=== PATIENT | male | born 1960 | race Two or more races ===

== ENCOUNTER 2016-08-30 19:37 | Emergency (ER) | payer MEDICAID, OTHER ==
[~2016-08-30] VITALS: Ht 182.9 cm; Wt 131.5 kg
[2016-08-30] MEDS ORDERED: ASPirin 81 mg TAB PO ONE (20:00)
[2016-08-30 20:08] LABS: Basophils # (auto) 0 uL; Basophils % (auto) 0.5 % (0.0-2.0); Eosinophils # (auto) 0.3 uL; Hematocrit 43.9 % (41.0-53.0); Hemoglobin 14.1 g/dL (13.5-17.5); Lymphocytes # (auto) 2.4 uL; Lymphocytes % (auto) 29.6 % (10.0-50.0); Mean Corpuscular Hemoglobin 28.1 pg (28.0-32.0); Mean Corpuscular Hgb Conc. 32.1 g/dL (32.0-36.0); Mean Corpuscular Volume 87.5 fL (80.0-100.0); Monocytes # (auto) 0.7 uL; Neutrophils # (auto) 4.6 uL; Neutrophils % (auto) 56.9 % (37.0-80.0); Platelet Count (auto) 365 10^3/uL (140-450); White Blood Cell 8.1 10^3/uL (4.4-10.8)
[2016-08-30 20:23] LABS: INR 0.99 (0.9-1.15); Partial Thromboplastin Time 25.2 sec (22.64-33.71); Prothrombin Time 10.2 sec (9.37-12.3)
[2016-08-30 20:34] LABS: Albumin 3.7 g/dL (3.4-5.0); BUN/Creatinine Ratio 10.9; Calcium 8.5 mg/dL (8.5-10.1); Magnesium 2.4 mg/dL (1.6-2.6); Potassium 3.7 mmol/L (3.5-5.1)
[2016-08-30 20:37] LABS: Bilirubin, Total 0.4 mg/dL (0.2-1.0); Total Protein 7.2 g/dL (6.4-8.2)
[2016-08-30 20:38] LABS: B-Type Natriuretic Peptide 13.77 pg/mL (0-100)
[2016-08-30 20:39] LABS: Temperature: 22.7 C (20.0-25.0)
[2016-08-30 21:48] LABS: Urine Bilirubin Negative (Negative); Urine Blood Negative /uL (Negative); Urine Color Yellow (Yellow); Urine Glucose TRACE mg/dL (Normal); Urine Ketone Negative (Negative); Urine Mucus FEW (None Seen); Urine Nitrite Negative (Negative); Urine RBC <1 /hpf (0 - 3); Urine Squamous Epithelial Cell FEW /hpf (<5); Urine Urobilinogen Normal (Negative); Urine pH 5.5 (5.0-8.0)
[2016-08-30 22:03] VITALS: BP 136/88
[2016-08-31] MEDS ORDERED: ALBUTEROL SULF 2.5 MG/0.5ML(0.5%) NEB SOLN NEB ONE
[2016-08-31] MEDS ORDERED: ACETAMINOPHEN 325 MG TAB PO ONE
[2016-08-31] MEDS ORDERED: IPRATROPIUM BROM 0.5 MG/2.5ML INH SOL NEB ONE
[2016-08-31] MEDS ORDERED: cefTRIAXone SOD 1,000 MG VL IM ONE (00:45)
== END 2016-08-31 01:01 | disposition home or self-care (01) ==
LOC: ER 19:40
DX: J06.9 Acute upper respiratory infection, unspecified (principal); J98.11 Atelectasis
CPT/HCPCS: 36415; 71020; 80053; 81001; 83735; 83880; 84484; 85025; 85379; 85610; 85730; 93005; 94640; 96372; 99285; J0696

== ENCOUNTER 2017-04-10 00:24 | Emergency (ER) | payer MEDICAID ==
[~2017-04-10] VITALS: Ht 182.9 cm; Wt 131.5 kg
[2017-04-10 01:26] LABS: Basophils # (auto) 0.1 uL; Basophils % (auto) 0.7 % (0.0-2.0); Eosinophils # (auto) 0.2 uL; Eosinophils % (auto) 2.8 % (0.0-7.0); Hematocrit 42.5 % (41.0-53.0); Hemoglobin 14.8 g/dL (13.5-17.5); Lymphocytes # (auto) 2.1 uL; Lymphocytes % (auto) 23.4 % (10.0-50.0); Mean Corpuscular Hgb Conc. 34.7 g/dL (32.0-36.0); Mean Corpuscular Volume 86.3 fL (80.0-100.0); Mean Platelet Volume 7.8 fL (6.9-10.8); Monocytes # (auto) 0.5 uL; Neutrophils # (auto) 5.9 uL; Neutrophils % (auto) 67.1 % (37.0-80.0); Nucleated Red Blood Cells % 0.2 %; Platelet Count (auto) 305 10^3/uL (140-450); Red Cell Distribution Width 12.9 % (11.8-14.3); White Blood Cell 8.8 10^3/uL (4.4-10.8)
[2017-04-10] MEDS ORDERED: ALBUTEROL SULF 2.5 MG/0.5ML(0.5%) NEB SOLN NEB ONE (01:30)
[2017-04-10] MEDS ORDERED: IPRATROPIUM BROM 0.5 MG/2.5ML INH SOL NEB ONE (01:30)
[2017-04-10 01:46] LABS: Albumin 3.7 g/dL (3.4-5.0); Anion Gap 10 (5-15); Aspartate Aminotransferase 16 U/L (15-37); Blood Urea Nitrogen 15 mg/dL (7-18); Calcium 8.9 mg/dL (8.5-10.1); Carbon Dioxide 25 mmol/L (21-32); Chloride 106 mmol/L (98-107); GFR African American 100 mL/min; GFR Non-African American 82 mL/min; Glucose 262 mg/dL (74-106); Potassium 3.7 mmol/L (3.5-5.1); Sodium 141 mmol/L (136-145)
[2017-04-10 01:56] LABS: Alkaline Phosphatase 81 U/L (45-117); Bilirubin, Total 0.3 mg/dL (0.2-1.0); Total Protein 7.1 g/dL (6.4-8.2)
[2017-04-10 05:07] VITALS: BP 138/76
== END 2017-04-10 05:08 | disposition home or self-care (01) ==
LOC: ER 00:27
DX: J20.9 Acute bronchitis, unspecified (principal); R04.2 Hemoptysis; E11.65 Type 2 diabetes mellitus with hyperglycemia
CPT/HCPCS: 36415; 71020; 80053; 84484; 85025; 85379; 93005; 94640

== ENCOUNTER 2021-11-17 09:41 | Inpatient (IN) | payer MEDICAID ==
[~2021-11-17] VITALS: Ht 182.9 cm; Wt 132.0 kg
[2021-11-17 10:45] LABS: Basophils # (auto) 0 10 ^3/uL (0-0.2); Basophils % (auto) 0.7 % (0.0-2.0); Eosinophils # (auto) 0.2 10 ^3/uL (0-0.8); Eosinophils % (auto) 2.5 % (0.0-7.0); Hematocrit 41.9 % (41.0-53.0); Hemoglobin 14.2 g/dL (13.5-17.5); Lymphocytes # (auto) 1.8 10 ^3/uL (0.4-5.4); Lymphocytes % (auto) 26.1 % (10.0-50.0); Mean Corpuscular Hemoglobin 29.4 pg (28.0-32.0); Mean Corpuscular Hgb Conc. 33.9 g/dL (32.0-36.0); Mean Corpuscular Volume 86.9 fL (80.0-100.0); Monocytes # (auto) 0.5 10 ^3/uL (0-1.3); Monocytes % (auto) 6.7 % (0.0-12.0); Neutrophils # (auto) 4.4 10 ^3/uL (1.6-8.6); Nucleated Red Blood Cells % 0.1 %; Red Blood Cells 4.83 10^6/uL (4.5-5.90); Red Cell Distribution Width 13.2 % (11.8-14.3); White Blood Cell 6.9 10^3/uL (4.4-10.8)
[2021-11-17 11:20] LABS: Albumin 3.7 g/dL (3.4-5.0); BUN/Creatinine Ratio 12.1; Calcium 9.5 mg/dL (8.5-10.1)
[2021-11-17 11:22] LABS: Bilirubin, Total 0.4 mg/dL (0.2-1.0); Total Protein 7.1 g/dL (6.4-8.2)
[2021-11-17 12:58] LABS: Urine Bacteria NONE SEEN /hpf (None Seen); Urine Blood Negative /uL (Negative); Urine Specific Gravity 1.019 (1.001-1.035); Urine WBC 3 /hpf (0 - 3)
[2021-11-17] MEDS ORDERED: LORazepam 2MG/ML-1ML VIAL IV PRN (20:00)
[2021-11-17] MEDS ORDERED: HYDROcodone-ACET 5/325MG TAB PO PRN (21:00)
[2021-11-17] MEDS ORDERED: ACETAMINOPHEN 325 MG TAB PO PRN (21:00)
[2021-11-17] MEDS ORDERED: DEXTROSE (50%) 50ML SYRG IV PRN (21:00)
[2021-11-17] MEDS ORDERED: MORPHINE SULFATE INJECTION 2 MG/ML SYRG IV PRN (21:00)
[2021-11-17] MEDS ORDERED: ONDANSETRON HCL 4 MG/2 ML VIAL IV PRN (21:00)
[2021-11-17] MEDS ORDERED: hydrALAZINE HCL 10 MG TAB PO PRN (21:00)
[2021-11-17] MEDS: ACCU-CHEK COMFORT CURVE STRIP VI SCH (21:55)
[2021-11-17] MEDS: InsuLIN REG 1unit/0.01ml Soln (100units/ml) SC SCH (21:56)
[2021-11-17 23:31] VITALS: BP 141/89
[2021-11-17] MEDS: FAMOTIDINE 20 MG TAB PO SCH (23:31)
[2021-11-18] MEDS ORDERED: OMEG100078 PO (04:23)
[2021-11-18] MEDS ORDERED: FENO160T8 PO (04:23)
[2021-11-18] MEDS ORDERED: ZINC100T5 PO (04:23)
[2021-11-18] MEDS ORDERED: LOSA-69 PO (04:23)
[2021-11-18] MEDS ORDERED: SEMA4INJ SC (04:23)
[2021-11-18] MEDS ORDERED: METF-489 PO (04:23)
[2021-11-18] MEDS ORDERED: SIMV-8 PO (04:23)
[2021-11-18] MEDS ORDERED: PIOG15TA25 PO (04:23)
[2021-11-18] MEDS ORDERED: DICY20TA PO (04:23)
[2021-11-18] MEDS ORDERED: LANS30CA57 PO (04:23)
[2021-11-18 04:56] VITALS: BP 127/77
[2021-11-18 06:15] LABS: Basophils # (auto) 0 10 ^3/uL (0-0.2); Basophils % (auto) 0.4 % (0.0-2.0); Eosinophils # (auto) 0.3 10 ^3/uL (0-0.8); Eosinophils % (auto) 4.1 % (0.0-7.0); Hematocrit 38.4 % (41.0-53.0); Hemoglobin 13.4 g/dL (13.5-17.5); Lymphocytes % (auto) 29.4 % (10.0-50.0); Mean Corpuscular Hgb Conc. 34.8 g/dL (32.0-36.0); Mean Corpuscular Volume 86.3 fL (80.0-100.0); Monocytes # (auto) 0.6 10 ^3/uL (0-1.3); Monocytes % (auto) 8.6 % (0.0-12.0); Neutrophils # (auto) 3.8 10 ^3/uL (1.6-8.6); Neutrophils % (auto) 57.5 % (37.0-80.0); Nucleated Red Blood Cells % 0.1 %; Red Blood Cells 4.45 10^6/uL (4.5-5.90); Red Cell Distribution Width 13.2 % (11.8-14.3); White Blood Cell 6.6 10^3/uL (4.4-10.8)
[2021-11-18 06:29] LABS: Albumin 3.3 g/dL (3.4-5.0); Calcium 8.4 mg/dL (8.5-10.1); Potassium 3.7 mmol/L (3.5-5.1)
[2021-11-18 06:32] LABS: BUN/Creatinine Ratio 13.3; Bilirubin, Total 0.3 mg/dL (0.2-1.0); Total Protein 6.3 g/dL (6.4-8.2)
[2021-11-18] MEDS: ACCU-CHEK COMFORT CURVE STRIP VI SCH ×3 (06:40→17:11)
[2021-11-18] MEDS: InsuLIN REG 1unit/0.01ml Soln (100units/ml) SC SCH ×3 (06:45→17:11)
[2021-11-18 09:00] VITALS: BP 132/77
[2021-11-18] MEDS: FAMOTIDINE 20 MG TAB PO SCH (09:31)
[2021-11-18] MEDS ORDERED: SIMV-13 PO (10:26)
[2021-11-18] MEDS ORDERED: GLIP5TAB12 PO (10:26)
[2021-11-18] MEDS ORDERED: LORA-622 PO (10:26)
[2021-11-18] MEDS ORDERED: TOPI50TA32 PO (10:26)
[2021-11-18] MEDS ORDERED: MECLIZINE HCL 25 MG TAB PO PRN (12:30)
[2021-11-18] MEDS ORDERED: SODIUM CHLORIDE 0.9% 1,000 ML IV ONE (12:30)
[2021-11-18 14:49] VITALS: BP 153/108
[2021-11-18 16:35] VITALS: BP 127/84
[2021-11-18] MEDS ORDERED: MECL25CH38 PO (18:16)
[2021-11-18 20:22] VITALS: BP 126/84
== END 2021-11-18 21:25 | disposition home health service (06) | DRG 111 ==
LOC: ER 09:41 → TELE 20:31 → TELE-EAST 23:00
PROVIDERS: ADMIT Nurse Practitioner Family; ATTEND Nurse Practitioner Family
DX: H81.10 Benign paroxysmal vertigo, unspecified ear (principal); E11.65 Type 2 diabetes mellitus with hyperglycemia; H57.02 Anisocoria; I44.5 Left posterior fascicular block; Z20.822 Contact with and (suspected) exposure to COVID-19; I10 Essential (primary) hypertension; G93.0 Cerebral cysts; E78.5 Hyperlipidemia, unspecified; E66.9 Obesity, unspecified; Z68.39 Body mass index [BMI] 39.0-39.9, adult
CPT/HCPCS: 36415; 70450; 70551; 71045; 71250; 80053; 81001; 82962; 83735; 83880; 84484; 85025; 93005; 93306; 93971; G0378; J1815

== ENCOUNTER 2022-03-23 06:08 | Inpatient (IN) | payer MEDICAID ==
[~2022-03-23] VITALS: Ht 182.9 cm; Wt 124.9 kg
[~2022-03-23 06:08] MED LIST: DICY20TA PO; FENO160T8 PO; GLIP5TAB12 PO; LANS30CA57 PO; LORA-622 PO; LOSA-69 PO; MECL25CH38 PO; METF-489 PO; OMEG100078 PO; PIOG15TA25 PO; SEMA4INJ SC; SIMV-13 PO; TOPI50TA32 PO; ZINC100T5 PO
[2022-03-23] MEDS ORDERED: ONDANSETRON HCL 4 MG/2 ML VIAL IV ONE (07:15)
[2022-03-23] MEDS ORDERED: LACTATED RINGER'S 1,000 ML IV ONE (07:15)
[2022-03-23] MEDS ORDERED: KETOROLAC TROMETH 30 MG/ML 1ML VIAL IV ONE (07:15)
[2022-03-23 07:26] LABS: Basophils # (auto) 0.1 10 ^3/uL (0-0.2); Basophils % (auto) 0.7 % (0.0-2.0); Eosinophils # (auto) 0.2 10 ^3/uL (0-0.8); Eosinophils % (auto) 2.3 % (0.0-7.0); Hematocrit 39.3 % (41.0-53.0); Lymphocytes # (auto) 1.5 10 ^3/uL (0.4-5.4); Mean Corpuscular Hemoglobin 28.7 pg (28.0-32.0); Mean Corpuscular Hgb Conc. 32.9 g/dL (32.0-36.0); Mean Corpuscular Volume 87.3 fL (80.0-100.0); Monocytes # (auto) 0.8 10 ^3/uL (0-1.3); Monocytes % (auto) 9.8 % (0.0-12.0); Neutrophils # (auto) 5.4 10 ^3/uL (1.6-8.6); Neutrophils % (auto) 68.2 % (37.0-80.0); Red Blood Cells 4.51 10^6/uL (4.5-5.90); Red Cell Distribution Width 12.6 % (11.8-14.3)
[2022-03-23 07:52] LABS: Albumin 3.5 g/dL (3.4-5.0); Calcium 8.7 mg/dL (8.5-10.1); Potassium 3.9 mmol/L (3.5-5.1)
[2022-03-23 07:55] LABS: BUN/Creatinine Ratio 8.5; Bilirubin, Total 0.5 mg/dL (0.2-1.0); Total Protein 7.2 g/dL (6.4-8.2)
[2022-03-23 09:03] LABS: Urine Bacteria NONE SEEN /hpf (None Seen); Urine Blood 1+ /uL (Negative); Urine Specific Gravity 1.004 (1.001-1.035); Urine WBC 2 /hpf (0 - 3)
[2022-03-23 09:14] LABS: Alcohol, Urine < 3.0 mg/dL (0-10); Amphetamine Screen, Urine NEGATIVE (NEGATIVE); Barbiturate Scree,Urine NEGATIVE (NEGATIVE); Benzodiazephine Screen, Urine NEGATIVE (NEGATIVE); Cannabinoid Screen, Urine NEGATIVE (NEGATIVE); Cocaine Screen, Urine NEGATIVE (NEGATIVE); Opiate Scree,Urine NEGATIVE (NEGATIVE); Phencyclidine Screen, Urine NEGATIVE (NEGATIVE)
[2022-03-23] MEDS ORDERED: cefTRIAXone 1GM/50ML D5W 50 ML IV ONE (10:00)
[2022-03-23] MEDS ORDERED: DEXTROSE (50%) 50ML SYRG IV PRN (10:30)
[2022-03-23] MEDS ORDERED: SODIUM CHLORIDE 0.9% 1,000 ML IV ONE (10:30)
[2022-03-23] MEDS ORDERED: hydrALAZINE HCL 20 MG/ML VL IV PRN (10:45)
[2022-03-23 11:05] LABS: INR 0.97 (0.9-1.15)
[2022-03-23] MEDS: InsuLIN REG 1unit/0.01ml Soln (100units/ml) SC SCH ×3 (11:30→21:46)
[2022-03-23] MEDS: ACCU-CHEK COMFORT CURVE STRIP VI SCH ×3 (11:30→21:46)
[2022-03-23] MEDS: ONDANSETRON HCL 4 MG/2 ML VIAL IV PRN (21:46)
[2022-03-23 22:00] VITALS: BP 107/65
[2022-03-24 05:00] VITALS: BP 120/86
[2022-03-24] MEDS: HYDROmorphone HCL 2 MG/ML VL/or syr IV PRN ×2 (05:41→20:23)
[2022-03-24] MEDS: ACCU-CHEK COMFORT CURVE STRIP VI SCH ×4 (06:17→21:43)
[2022-03-24] MEDS: InsuLIN REG 1unit/0.01ml Soln (100units/ml) SC SCH ×4 (06:17→21:44)
[2022-03-24 06:21] LABS: Basophils # (auto) 0 10 ^3/uL (0-0.2); Basophils % (auto) 0.8 % (0.0-2.0); Eosinophils # (auto) 0.2 10 ^3/uL (0-0.8); Eosinophils % (auto) 3.7 % (0.0-7.0); Hematocrit 35.5 % (41.0-53.0); Hemoglobin 11.8 g/dL (13.5-17.5); Lymphocytes # (auto) 1.5 10 ^3/uL (0.4-5.4); Lymphocytes % (auto) 24.1 % (10.0-50.0); Mean Corpuscular Hemoglobin 28.6 pg (28.0-32.0); Mean Corpuscular Hgb Conc. 33.3 g/dL (32.0-36.0); Monocytes # (auto) 0.5 10 ^3/uL (0-1.3); Monocytes % (auto) 8.3 % (0.0-12.0); Neutrophils # (auto) 3.9 10 ^3/uL (1.6-8.6); Neutrophils % (auto) 63.1 % (37.0-80.0); Nucleated Red Blood Cells % 0.1 %; Red Blood Cells 4.13 10^6/uL (4.5-5.90); Red Cell Distribution Width 12.3 % (11.8-14.3); White Blood Cell 6.1 10^3/uL (4.4-10.8)
[2022-03-24 06:23] LABS: Albumin 3.2 g/dL (3.4-5.0); Calcium 8.6 mg/dL (8.5-10.1); Potassium 4.4 mmol/L (3.5-5.1)
[2022-03-24 06:25] LABS: BUN/Creatinine Ratio 8.9
[2022-03-24 06:28] LABS: Bilirubin, Total 0.4 mg/dL (0.2-1.0)
[2022-03-24] MEDS: cefTRIAXone 1GM/50ML D5W 50 ML IV SCH (08:31)
[2022-03-24 09:00] VITALS: BP 120/75
[2022-03-24] MEDS: ONDANSETRON HCL 4 MG/2 ML VIAL IV PRN (10:16)
[2022-03-24] MEDS ORDERED: MANNITOL FTV 25% 12.5 GM/50 ML 50 ML IV ONE (11:15)
[2022-03-24] MEDS ORDERED: HYDROcodone-ACET 5/325MG TAB PO PRN (12:00)
[2022-03-24 13:00] VITALS: BP 138/87
[2022-03-24] MEDS: SODIUM CHLORIDE 0.9% 1,000 ML IV SCH (13:43)
[2022-03-24 17:00] VITALS: BP 125/65
[2022-03-24 20:00] VITALS: BP 127/71
[2022-03-24 22:00] VITALS: BP 127/71
[2022-03-25] MEDS: SODIUM CHLORIDE 0.9% 1,000 ML IV SCH ×2 (02:20→14:40)
[2022-03-25 05:00] VITALS: BP 121/77
[2022-03-25 06:19] LABS: BUN/Creatinine Ratio 14.3; Calcium 8.5 mg/dL (8.5-10.1); Potassium 4.6 mmol/L (3.5-5.1)
[2022-03-25] MEDS: ACCU-CHEK COMFORT CURVE STRIP VI SCH ×4 (06:30→21:26)
[2022-03-25] MEDS: HYDROmorphone HCL 2 MG/ML VL/or syr IV PRN (06:31)
[2022-03-25] MEDS: InsuLIN REG 1unit/0.01ml Soln (100units/ml) SC SCH ×4 (06:31→21:27)
[2022-03-25 09:00] VITALS: BP 138/80
[2022-03-25] MEDS: cefTRIAXone 1GM/50ML D5W 50 ML IV SCH (10:09)
[2022-03-25] MEDS ORDERED: HYDROmorphone HCL 2 MG/ML VL/or syr IV PRN ×2 (11:00→13:45)
[2022-03-25] MEDS: ONDANSETRON HCL 4 MG/2 ML VIAL IV PRN ×2 (12:44→17:27)
[2022-03-25 13:00] VITALS: BP 130/78
[2022-03-25] MEDS ORDERED: HYDROcodone-ACET 5/325MG TAB PO PRN (13:45)
[2022-03-25 17:00] VITALS: BP 138/82
[2022-03-25 20:00] VITALS: BP 123/76
[2022-03-25 22:00] VITALS: BP 123/76
[2022-03-26 05:00] VITALS: BP 124/84
[2022-03-26] MEDS: SODIUM CHLORIDE 0.9% 1,000 ML IV SCH (05:03)
[2022-03-26] MEDS: ACCU-CHEK COMFORT CURVE STRIP VI SCH ×2 (06:44→12:18)
[2022-03-26] MEDS: InsuLIN REG 1unit/0.01ml Soln (100units/ml) SC SCH ×2 (06:44→12:26)
[2022-03-26 06:57] LABS: INR 0.99 (0.9-1.15); Partial Thromboplastin Time 26.3 sec (24.6-33.4)
[2022-03-26 07:02] LABS: Calcium 8.4 mg/dL (8.5-10.1); Potassium 4.3 mmol/L (3.5-5.1)
[2022-03-26 07:08] LABS: Basophils # (auto) 0 10 ^3/uL (0-0.2); Basophils % (auto) 0.5 % (0.0-2.0); Eosinophils # (auto) 0.1 10 ^3/uL (0-0.8); Eosinophils % (auto) 2.4 % (0.0-7.0); Hematocrit 38.6 % (41.0-53.0); Hemoglobin 12.8 g/dL (13.5-17.5); Lymphocytes # (auto) 1.1 10 ^3/uL (0.4-5.4); Lymphocytes % (auto) 18.8 % (10.0-50.0); Mean Corpuscular Hgb Conc. 33.3 g/dL (32.0-36.0); Monocytes # (auto) 0.4 10 ^3/uL (0-1.3); Monocytes % (auto) 7.8 % (0.0-12.0); Neutrophils % (auto) 70.5 % (37.0-80.0); Nucleated Red Blood Cells % 0.1 %; Red Blood Cells 4.43 10^6/uL (4.5-5.90); Red Cell Distribution Width 12.3 % (11.8-14.3); White Blood Cell 5.6 10^3/uL (4.4-10.8)
[2022-03-26 07:09] LABS: Albumin 3.3 g/dL (3.4-5.0); Bilirubin, Total 0.4 mg/dL (0.2-1.0); Total Protein 6.4 g/dL (6.4-8.2)
[2022-03-26] MEDS ORDERED: ceFAZolin 1GM/50ML 100 ML IV ONE (07:14)
[2022-03-26] MEDS ORDERED: fentaNYL CITRATE 100 MCG/2 ML VL ONE (07:34)
[2022-03-26] MEDS ORDERED: MIDAZOLAM HCL 2MG/2ML 2ml VIAL (1mg/ml) ONE (07:35)
[2022-03-26] MEDS ORDERED: LIDOCAINE 2% (LOCAL ANESTH.) PF 5ml SDV ONE (07:37)
[2022-03-26] MEDS ORDERED: ONDANSETRON HCL 4 MG/2 ML VIAL ONE (07:37)
[2022-03-26] MEDS ORDERED: PROPOFOL 10 MG/ML 20 ML IV ONE ×2 (07:38→09:32)
[2022-03-26 08:25] VITALS: BP 138/83
[2022-03-26] MEDS ORDERED: HYDROmorphone HCL 2 MG/ML VL/or syr IV PRN (08:45)
[2022-03-26] MEDS ORDERED: ONDANSETRON HCL 4 MG/2 ML VIAL IV PRN (08:45)
[2022-03-26] MEDS: cefTRIAXone 1GM/50ML D5W 50 ML IV SCH (09:00)
[2022-03-26] MEDS ORDERED: ONDA-144 PO (12:05)
[2022-03-26 12:35] VITALS: BP 127/77
== END 2022-03-26 15:45 | disposition home or self-care (01) | DRG 443 ==
LOC: ER 06:25 → OVERFLOW 10:27 → EAST 21:20
PROVIDERS: ADMIT Registered Nurse; ATTEND Internal Medicine
PROC: 0TC78ZZ Extirpation of Matter from Left Ureter, Via Natural or Artificial Opening Endoscopic (ICD-10-PCS; 2022-03-26)
PROC: 0TC18ZZ Extirpation of Matter from Left Kidney, Via Natural or Artificial Opening Endoscopic (ICD-10-PCS; principal; 2022-03-26 07:39)
DX: N13.2 Hydronephrosis with renal and ureteral calculous obstruction (principal); N17.0 Acute kidney failure with tubular necrosis; E66.9 Obesity, unspecified; E11.65 Type 2 diabetes mellitus with hyperglycemia; E78.5 Hyperlipidemia, unspecified; Z20.822 Contact with and (suspected) exposure to COVID-19; I10 Essential (primary) hypertension; Z68.37 Body mass index [BMI] 37.0-37.9, adult; Z79.84 Long term (current) use of oral hypoglycemic drugs; Z79.899 Other long term (current) drug therapy; Z80.0 Family history of malignant neoplasm of digestive organs; Z90.49 Acquired absence of other specified parts of digestive tract
CPT/HCPCS: 36415; 71045; 74176; 76775; 80048; 80053; 80307; 81001; 82962; 83690; 84484; 85025; 85610; 85730; 86850; 86900; 86901; 93005; 96361; 96365; 96375; G0378; J0690; J0696; J1815; J1885; J2001; J2250; J2405; J2704

== ENCOUNTER → 2022-04-20 | Outpatient (CLI) | payer MEDICAID ==
[~2022-04-20] MED LIST changes: +ONDA-144 PO
== END | disposition home or self-care (01) ==
LOC: LAB 15:00
PROVIDERS: ATTEND Urology
DX: N20.0 Calculus of kidney (principal)

== ENCOUNTER → 2025-03-13 | Day surgery (SDC) | payer MEDICAID ==
[2025-03-12 12:59] LABS: Hematocrit 38.8 % (41.0-53.0); Hemoglobin 13.3 g/dL (13.5-17.5); Mean Corpuscular Hemoglobin 30.3 pg (28.0-32.0); Mean Corpuscular Volume 87.9 fL (80.0-100.0); Nucleated Red Blood Cells % 0.0 %
[2025-03-12 13:01] LABS: Urine Protein, UAD Negative (Negative)
[2025-03-12 13:17] LABS: INR 0.97 (0.9-1.15); Partial Thromboplastin Time 25.0 SEC (24.5-34.5); Prothrombin Time 10.3 sec (9.3-11.8)
[2025-03-12 14:57] LABS: Alanine Aminotransferase 19 U/L (7-40); Albumin 4.6 g/dL (3.2-4.8); Alkaline Phosphatase 55 U/L (46-116); Anion Gap 10 (5-15); BUN/Creatinine Ratio 9.4 (10.0-20.0); Blood Urea Nitrogen 11 mg/dL (9-23); Calcium 9.5 mg/dL (8.7-10.4); Carbon Dioxide 25 mmol/L (20-31); Potassium 3.6 mmol/L (3.5-5.1); Sodium 143 mmol/L (136-145); Total Protein 6.5 g/dL (5.7-8.2)
[2025-03-12 14:58] LABS: Bilirubin, Total 0.4 mg/dL (0.2-1.0)
[2025-03-12 15:04] LABS: Chloride 108 mmol/L (98-107); Glucose 150 mg/dL (74-106)
[~2025-03-13] VITALS: Ht 182.9 cm; Wt 121.6 kg
[~2025-03-13] MED LIST changes: +ALBUTEROL SULFATE 90 MCG MDI IN ONE; +ATOR40TA52 PO; +FENO160T PO; -FENO160T8 PO; -GLIP5TAB12 PO; +GLIP5TAB21 PO; +GLYCOPYRROLATE 0.2 MG/ML 1ML VIAL ONE; +HYDROmorphone HCL 2 MG/ML VL/or syr IV PRN; +IBUP-1456 PO; +KETOROLAC TROMETH 30 MG/ML 1ML VIAL ONE; +LIDOCAINE 2% (LOCAL ANESTH.) PF 5ml SDV ONE; -LORA-622 PO; +LOSA-534 PO; -LOSA-69 PO; -MECL25CH38 PO; +METOCLOPRAMIDE HCL 5MG/ml INJ 2ml VIAL ONE; +MIDAZOLAM HCL 2MG/2ML 2ml VIAL (1mg/ml) ONE; -OMEG100078 PO; -ONDA-144 PO; +ONDANSETRON HCL 4 MG/2 ML VIAL ONE; +PREG75CA PO; +PROPOFOL 10 MG/ML 20 ML IV ONE; -SEMA4INJ SC; -SIMV-13 PO; +TIRZ2.5I SC; +TOPI1CAP23 OR; -TOPI50TA32 PO; +diphenhdrAMINE HCL 50 MG/1 ML VL ONE; +fentaNYL CITRATE 100 MCG/2 ML VL ONE; +hydrALAZINE HCL 20 MG/ML VL IV PRN
[2025-03-13] MEDS: CIPROFLOXACIN 400MG/200ML 200 ML IV ONE (14:45)
[2025-03-13] MEDS: IOHEXOL 300 MG/ML 100ML BOTTLE IJ ONE (14:50)
--- NOTE | 2025-03-13 15:18 | DVHNC2 ---
Procedure - OPERATIVE REPORT Pre-op. Diagnosis: Renal Stone Post-op. Diagnosis: Same as pre-op diagnosis Operation: Extracorporeal Shockwave Lithotripsy Anesthesia: General Indications: Patient was found to have symptomatic Urolithiasis. Patient is here to undergo ESWL therapy. Informed Consent: The procedure was explained to the patient. It's risks include but not limited to infection, bleeding, and damage to the kidney. Patient fully understood and signed the consent. Other options such as watchful waiting, Ureteroscopy, Percutaneous surgery and open surgery were also discussed. Details of Procedure: Under satisfactory anesthesia, the patient was positioned on the lithotripsy table. Using fluoroscopy the stone could not be localized. IV contrast was administered with findings of midpole calyceal shadow which was placed onto the F2 focus for treatment.Starting at low energy levels, shockwave treatment was commenced. The energy level was gradually increased and stone was fragmented. Once the treatment was completed, patient was then taken off the lithotripsy table and sent to recovery room in stable condition. Specimens: None Complications: None Findings: Stone Laterality: left mid pole 4 mm stone Stone Location: renal Shocks Delivered: 2000 [employer] Power settin Fragmentation Quality: Well KAMRAN GAGE MD Mar 13, 2025 15:18
--- NOTE | 2025-03-13 15:19 | DVHDS2 ---
New Physician D'charge PN Admitting Diagnosis Admitting Diagnosis Left nephrolithiasis Discharge Diagnosis Same Operations or Procedures Extracorporeal shockwave lithotripsy Reason(s) For Hospitalization Surgery Treatment Plan Discharge Condition of Discharge Fair Disposition Home Discharge Instructions Diet: Regular Activity: Light activity Activity comment: As tolerated Medications: Given Follow Up Care Follow Up/Referral: Patient to return for right-sided lithotripsy in four weeks Discharge Statement: "Patient was advised to return to the ER or call 911 if any headaches, dizziness, shortness of breath, chest pain, abdominal pain, bleeding, fevers, or worsening of medical condition. Patient was counseled about treatment plan, medications, possible side effects, patientverbalized understanding. All questions were answered to the best of my ability. This discharge took greater then 30 minutes in planning, reviewing documentation, counseling the patient, and discussing with other team members." KAMRAN GAGE MD Mar 13, 2025 15:19
[2025-03-13 15:32] VITALS: PULSE 89; RESP 15; TEMP 98; O2SAT 92
[2025-03-13] MEDS: ONDANSETRON HCL 4 MG/2 ML VIAL IV PRN (16:15)
[2025-03-13] MEDS: METOCLOPRAMIDE HCL 5MG/ml INJ 2ml VIAL IV ONE (16:38)
[2025-03-13 16:50] VITALS: BP 123/74; PULSE 77; RESP 15; O2SAT 95
== END | disposition home or self-care (01) ==
LOC: SUR 09:24
PROVIDERS: ATTEND Urology
DX: N20.2 Calculus of kidney with calculus of ureter (principal); I10 Essential (primary) hypertension; E78.5 Hyperlipidemia, unspecified; Z98.890 Other specified postprocedural states; Z79.899 Other long term (current) drug therapy
CPT/HCPCS: 36415; 50590; 80053; 81001; 82962; 85025; 85610; 85730; 87086; J0744; J1100; J1200; J1885; J2003; J2250; J2405; J2704; J2765; J3010; Q9967

== ENCOUNTER 2025-03-21 14:48 | Outpatient (CLI) | payer MEDICAID ==
[~2025-03-21 14:48] MED LIST changes: -ALBUTEROL SULFATE 90 MCG MDI IN ONE; -GLYCOPYRROLATE 0.2 MG/ML 1ML VIAL ONE; -HYDROmorphone HCL 2 MG/ML VL/or syr IV PRN; -KETOROLAC TROMETH 30 MG/ML 1ML VIAL ONE; -LIDOCAINE 2% (LOCAL ANESTH.) PF 5ml SDV ONE; -METOCLOPRAMIDE HCL 5MG/ml INJ 2ml VIAL ONE; -MIDAZOLAM HCL 2MG/2ML 2ml VIAL (1mg/ml) ONE; -ONDANSETRON HCL 4 MG/2 ML VIAL ONE; -PROPOFOL 10 MG/ML 20 ML IV ONE; -diphenhdrAMINE HCL 50 MG/1 ML VL ONE; -fentaNYL CITRATE 100 MCG/2 ML VL ONE; -hydrALAZINE HCL 20 MG/ML VL IV PRN
== END 2025-03-21 17:00 | disposition home or self-care (01) ==
LOC: LAB 14:48
PROVIDERS: ATTEND Urology
DX: N20.0 Calculus of kidney (principal)
CPT/HCPCS: 82360